=== PATIENT | female | born 1955 | race Caucasian/White ===

== ENCOUNTER 2022-03-28 07:22 | Inpatient (IN) | payer OTHER ==
[~2022-03-28] VITALS: Ht 157.5 cm; Wt 76.5 kg
[2022-03-28] MEDS ORDERED: ETOMIDATE 2 MG/ML 10 ML VIAL IVP ONE (07:45)
[2022-03-28] MEDS ORDERED: SUCCINYLCHOLINE CHLORIDE 20 MG/ML 10 ML VIAL IVP ONE (07:45)
[2022-03-28] MEDS ORDERED: KETAMINE HCL 500 MG in DEXTROSE 5%-WATER 490 ML IV PRN (07:45)
[2022-03-28] MEDS ORDERED: 0.9% SODIUM CHLORIDE 10 ML SYRINGE IVP PRN (07:45)
[2022-03-28 08:14] LABS: BASOPHILS % (AUTO) 0.2 % (0.0-2.0); EOSINOPHILS % (AUTO) 0 % (1.0-6.0); HEMOGLOBIN 15.6 g/dL (12.0-16.0); LYMPHOCYTES # (AUTO) 0.3 K/uL (1.0-4.8); LYMPHOCYTES % (AUTO) 1.9 % (22.0-44.0); MEAN CORPUSCULAR HEMOGLOBIN 32.3 pg (26.0-34.0); MEAN CORPUSCULAR HGB CONC 34.5 G/dL (31.0-37.0); MEAN CORPUSCULAR VOLUME 93 fL (80-100); MONOCYTES # (AUTO) 1.3 K/uL (0.1-1.0); MONOCYTES % (AUTO) 9.4 % (2.0-9.0); PLATELET COUNT (AUTO) 283 K/uL (150-450); RED BLOOD CELL COUNT(AUTO) 4.82 MIL/uL (4.00-5.20); RED CELL DISTRIBUTION WIDTH 13.2 % (11.5-14.5)
[2022-03-28 08:15] LABS: NEUTROPHILS % (AUTO) 88.5 % (40.0-70.0)
[2022-03-28 08:18] LABS: ANION GAP 9 mmol/L (8-16); CALCIUM, TOTAL 9.1 mg/dL (8.8-10.5); CARBON DIOXIDE 30 mmol/L (22-29); CHLORIDE 102 mmol/L (98-107); CREATININE 0.98 mg/dL (0.60-1.30); GLOMERULAR FILTR. RATE CALC 56 mL/min (>60); GLUCOSE,RANDOM 162 mg/dL (70-110); POTASSIUM 3.7 mmol/L (3.5-5.1); SODIUM SERUM 141 mmol/L (136-145); UREA NITROGEN, BLOOD 16 mg/dL (7-18)
[2022-03-28 08:19] LABS: PROTHROMBIN TIME 11.1 SEC (9.4-11.6)
[2022-03-28 08:23] LABS: ALANINE AMINOTRANSFERASE 65 U/L (12-78); ALBUMIN 4.3 g/dL (3.4-5.0); ALKALINE PHOSPHATASE 105 U/L (46-116); ASPARTATE AMINOTRANSFERASE 45 U/L (15-37); TOTAL PROTEIN, SERUM 8.2 g/dL (6.4-8.2)
[2022-03-28 08:30] LABS: LACTIC ACID 6.2 mmol/L (0.4-2.0)
[2022-03-28 08:35] LABS: B-TYPE NATRIURETIC PEPTIDE 54 pg/mL (0-100)
[2022-03-28] MEDS ORDERED: CefTRIAXone 1 GM/DEXTROSE 50 ML IV ONE (09:00)
[2022-03-28] MEDS ORDERED: AZITHROMYCIN 500 MG/NS 250 ML IV ONE (09:00)
[2022-03-28 09:14] LABS: APPEARANCE,URINE CLEAR (CLEAR); BILIRUBIN,URINE NEGATIVE (NEGATIVE); GLUCOSE, URINE (UA) NEGATIVE (NEGATIVE); KETONES,URINE NEGATIVE (NEGATIVE); LEUKOCYTE ESTERASE ,URINE NEGATIVE (NEGATIVE); NITRATE,URINE NEGATIVE (NEGATIVE); OCCULT BLOOD,URINE NEGATIVE (NEGATIVE); PH,URINE 6.5 (5.0-8.0); PROTEIN,URINE TRACE mg/dL (NEGATIVE); SPECIFIC GRAVITIY, URINE 1.018 (1.003-1.030); UROBILINOGEN,URINE <=1.0 mg/dL (<=1.0)
[2022-03-28] MEDS ORDERED: SODIUM CHLORIDE 0.9% 2,300 ML IV ONE (09:15)
[2022-03-28] MEDS ORDERED: ACETAMINOPHEN 1000 MG/ISO-OSM 100 ML IV ONE (09:15)
[2022-03-28 09:27] LABS: BACTERIA,URINE None Seen /HPF (None Seen); RBC,URINE None Seen /HPF (0-2); SQUAMOUS EPITHELIAL CELL,UR Few /LPF (None Seen); WBC,URINE None Seen /HPF (0-5)
[2022-03-28 09:39] LABS: ABG BASE EXCESS -0.3 mmol/L (-2.0-3.0); ABG CARBOXYHEMOGLOBIN 0.1 % (0.0-1.5); ABG HCO3 24.5 mmol/L (22.0-26.0); ABG METHEMOGLOBIN 0.4 % (0.0-1.5); ABG OXYGEN CONTENT 22.1 mL/dL (15.0-23.0); ABG OXYGEN SATURATION 99.1 % (95.0-98.0); ABG OXYHEMOGLOBIN 98.6 % (94.0-100.0); ABG PCO2 42 mmHg (35-45); ABG PH 7.391 (7.35-7.450); ABG TOTAL HEMOGLOBIN 15.7 G/dL (12.0-18.0); PO2, ARTERIAL BG 181.9 mmHg (79.0-87.0); SOURCE, BLOOD GAS ARTERIAL
[2022-03-28 09:40] LABS: O2 DEVICE,BLOOD GAS VENTILATOR (ROOM AIR); PEEP,BG 5 cm H2O; SITE, BLOOD GAS RT RADIAL; SPONTANEOUS VT, BG 602 ml; VT, ABG 400 ml
[2022-03-28] MEDS ORDERED: PROPOFOL 1000 MG/ISO-OSM 100 ML ONE (10:19)
[2022-03-28] MEDS ORDERED: PROPOFOL 1000 MG/ISO-OSM 100 ML IV PRN (10:45)
[2022-03-28 11:46] LABS: COVID AG,FIA SOURCE NASAL SWAB
[2022-03-28] MEDS ORDERED: SODIUM CHLORIDE 0.9% 1,000 ML IV ONE ×2 (12:00→16:15)
[2022-03-28 16:00] VITALS: BP 93/52
[2022-03-28] MEDS ORDERED: ONDANSETRON HCL 4 MG/2 ML VIAL IVP PRN (16:15)
[2022-03-28] MEDS ORDERED: ZOLPIDEM TARTRATE 5 MG TABLET PO PRN (16:15)
[2022-03-28] MEDS ORDERED: MORPHINE SULFATE 2 MG/ML SYRINGE IVP PRN (16:15)
[2022-03-28] MEDS ORDERED: MAGNESIUM HYDROXIDE SUSPENSION 30 ML UDCUP PO PRN (16:15)
[2022-03-28] MEDS ORDERED: HYDROCODONE/ACETAMINOPHEN 5-325 MG TABLET PO PRN (16:15)
[2022-03-28] MEDS ORDERED: BISACODYL 10 MG RECTAL RECTAL SUPPOSITORY PR PRN (16:15)
[2022-03-28] MEDS: FentaNYL CIT 1000MCG/0.9% NACL 100 ML IV PRN (17:00)
[2022-03-28] MEDS: NOREPINEPHRINE 8 MG/D5%-WATER 250 ML IV PRN (17:13)
[2022-03-28] MEDS: RINGERS SOLUTION,LACTATED 1,000 ML IV SCH (17:14)
[2022-03-28 20:00] VITALS: BP 102/42
[2022-03-28] MEDS: PIPERACILLIN/TAZO 3.375 GM/D5W 50 ML IV SCH (20:24)
[2022-03-28] MEDS ORDERED: SODIUM CHLORIDE 0.9% 250 ML IV ONE (20:27)
[2022-03-28] MEDS: DOCUSATE SODIUM 100 MG CAPSULE PO SCH (21:12)
[2022-03-28] MEDS: ACETAMINOPHEN 325 MG TABLET PO PRN (21:35)
[2022-03-29] VITALS (9 sets, daily range): BP systolic 92–128; BP diastolic 40–68
[2022-03-29] MEDS: PIPERACILLIN/TAZO 3.375 GM/D5W 50 ML IV SCH ×5 (00:29→22:18)
[2022-03-29] MEDS: HEPARIN SODIUM,PORCINE 5,000 UNITS/ML VIAL SQ SCH ×4 (00:32→23:53)
[2022-03-29] MEDS: RINGERS SOLUTION,LACTATED 1,000 ML IV SCH ×3 (03:39→23:53)
[2022-03-29] MEDS: ACETAMINOPHEN 325 MG TABLET PO PRN ×2 (04:27→17:49)
[2022-03-29] MEDS: LEVOTHYROXINE SODIUM 75 MCG TABLET PO SCH (06:02)
[2022-03-29 06:15] LABS: BASOPHILS % (AUTO) 0.3 % (0.0-2.0); EOSINOPHILS % (AUTO) 0.1 % (1.0-6.0); HEMATOCRIT 39.2 % (36-46); HEMOGLOBIN 13.5 g/dL (12.0-16.0); LYMPHOCYTES # (AUTO) 1.8 K/uL (1.0-4.8); LYMPHOCYTES % (AUTO) 12.7 % (22.0-44.0); MEAN CORPUSCULAR HEMOGLOBIN 32.6 pg (26.0-34.0); MEAN CORPUSCULAR HGB CONC 34.6 G/dL (31.0-37.0); MEAN CORPUSCULAR VOLUME 94 fL (80-100); MONOCYTES # (AUTO) 0.9 K/uL (0.1-1.0); MONOCYTES % (AUTO) 6.2 % (2.0-9.0); NEUTROPHILS # (AUTO) 11.3 K/uL (1.8-7.7); NEUTROPHILS % (AUTO) 80.7 % (40.0-70.0); PLATELET COUNT (AUTO) 180 K/uL (150-450); RED BLOOD CELL COUNT(AUTO) 4.15 MIL/uL (4.00-5.20); RED CELL DISTRIBUTION WIDTH 13.3 % (11.5-14.5)
[2022-03-29 06:21] LABS: ANION GAP 7 mmol/L (8-16); CARBON DIOXIDE 27 mmol/L (22-29); CHLORIDE 106 mmol/L (98-107); CREATININE 0.57 mg/dL (0.60-1.30); GLUCOSE,RANDOM 135 mg/dL (70-110); POTASSIUM 3.4 mmol/L (3.5-5.1); SODIUM SERUM 140 mmol/L (136-145); UREA NITROGEN, BLOOD 9 mg/dL (7-18)
[2022-03-29 06:25] LABS: GLOMERULAR FILTR. RATE CALC > 60 mL/min (>60)
[2022-03-29] MEDS: NOREPINEPHRINE 8 MG/D5%-WATER 250 ML IV PRN (06:59)
[2022-03-29] MEDS: FentaNYL CIT 1000MCG/0.9% NACL 100 ML IV PRN ×2 (07:00→17:23)
[2022-03-29] MEDS: PROPOFOL 1000 MG/ISO-OSM 100 ML IV PRN ×2 (07:04→17:24)
[2022-03-29] MEDS: DOCUSATE SODIUM 100 MG CAPSULE PO SCH ×2 (08:26→21:02)
[2022-03-29] MEDS: PANTOPRAZOLE SODIUM 40 MG DR TABLET PO SCH (08:26)
[2022-03-30] VITALS: BP 120/56
[2022-03-30] MEDS: PROPOFOL 1000 MG/ISO-OSM 100 ML IV PRN ×3 (01:29→16:55)
[2022-03-30] MEDS: ACETAMINOPHEN 325 MG TABLET PO PRN ×4 (02:08→23:52)
[2022-03-30 04:00] VITALS: BP 121/49
[2022-03-30] MEDS: PIPERACILLIN/TAZO 3.375 GM/D5W 50 ML IV SCH ×4 (05:25→23:23)
[2022-03-30] MEDS: LEVOTHYROXINE SODIUM 75 MCG TABLET PO SCH (06:30)
[2022-03-30 07:07] LABS: BASOPHILS % (AUTO) 0.8 % (0.0-2.0); EOSINOPHILS % (AUTO) 0.9 % (1.0-6.0); HEMATOCRIT 36.3 % (36-46); HEMOGLOBIN 12.7 g/dL (12.0-16.0); LYMPHOCYTES # (AUTO) 1.2 K/uL (1.0-4.8); LYMPHOCYTES % (AUTO) 21.9 % (22.0-44.0); MEAN CORPUSCULAR HEMOGLOBIN 32.6 pg (26.0-34.0); MEAN CORPUSCULAR HGB CONC 34.9 G/dL (31.0-37.0); MEAN CORPUSCULAR VOLUME 93 fL (80-100); MONOCYTES # (AUTO) 0.2 K/uL (0.1-1.0); MONOCYTES % (AUTO) 4.4 % (2.0-9.0); NEUTROPHILS # (AUTO) 4.1 K/uL (1.8-7.7); PLATELET COUNT (AUTO) 165 K/uL (150-450); RED BLOOD CELL COUNT(AUTO) 3.89 MIL/uL (4.00-5.20); RED CELL DISTRIBUTION WIDTH 13.4 % (11.5-14.5)
[2022-03-30 07:20] LABS: ANION GAP 6 mmol/L (8-16); CALCIUM, TOTAL 8.5 mg/dL (8.8-10.5); CARBON DIOXIDE 29 mmol/L (22-29); CHLORIDE 107 mmol/L (98-107); CREATININE 0.56 mg/dL (0.60-1.30); GLUCOSE,RANDOM 85 mg/dL (70-110); POTASSIUM 3.3 mmol/L (3.5-5.1); SODIUM SERUM 142 mmol/L (136-145); UREA NITROGEN, BLOOD 11 mg/dL (7-18)
[2022-03-30 07:22] LABS: GLOMERULAR FILTR. RATE CALC > 60 mL/min (>60)
[2022-03-30 08:00] VITALS: BP 144/67
[2022-03-30] MEDS: HEPARIN SODIUM,PORCINE 5,000 UNITS/ML VIAL SQ SCH ×3 (09:25→23:57)
[2022-03-30] MEDS: RINGERS SOLUTION,LACTATED 1,000 ML IV SCH ×2 (09:25→18:00)
[2022-03-30] MEDS: DOCUSATE SODIUM 100 MG CAPSULE PO SCH (09:25)
[2022-03-30] MEDS: PANTOPRAZOLE SODIUM 40 MG DR TABLET PO SCH (09:26)
[2022-03-30 11:28] LABS: ABG BASE EXCESS 4.3 mmol/L (-2.0-3.0); ABG CARBOXYHEMOGLOBIN 0.3 % (0.0-1.5); ABG HCO3 28.1 mmol/L (22.0-26.0); ABG METHEMOGLOBIN 0.3 % (0.0-1.5); ABG OXYGEN CONTENT 16.7 mL/dL (15.0-23.0); ABG OXYGEN SATURATION 96.3 % (95.0-98.0); ABG OXYHEMOGLOBIN 95.7 % (94.0-100.0); ABG PCO2 41 mmHg (35-45); ABG PH 7.458 (7.35-7.450); ABG TOTAL HEMOGLOBIN 12.4 G/dL (12.0-18.0); PO2, ARTERIAL BG 83.3 mmHg (79.0-87.0); SOURCE, BLOOD GAS ARTERIAL; TEMPERATURE, FAHRENHEIT, BG 100.3 FAHREN (96.0-98.6)
[2022-03-30 11:29] LABS: O2 DEVICE,BLOOD GAS VENTILATOR (ROOM AIR); PEEP,BG 5 cm H2O; PRESSURE SUPPORT, BG 5 cm H2O; SITE, BLOOD GAS LFT RADIAL; SPONTANEOUS VT, BG 411 ml; VENT MODE, BG Press. Support Vent. (ROOM AIR)
[2022-03-30] MEDS ORDERED: HydrALAZINE HCL 20 MG/ML VIAL IVP ONE (11:45)
[2022-03-30 12:00] VITALS: BP 125/60
[2022-03-30] MEDS: FentaNYL CIT 1000MCG/0.9% NACL 100 ML IV PRN (12:28)
[2022-03-30] MEDS ORDERED: POTASSIUM CHLORIDE 20 MEQ ER TABLET PO PRN (12:30)
[2022-03-30] MEDS: POTASSIUM CHL 10 MEQ/WATER 50 ML IV PRN ×5 (14:22→22:25)
[2022-03-30 16:00] VITALS: BP 107/58
[2022-03-30] MEDS ORDERED: DEXMEDETOMIDINE HCL 400 MCG in SODIUM CHLORIDE 0.9% 96 ML IV PRN (19:15)
[2022-03-30 20:00] VITALS: BP 94/52
[2022-03-30] MEDS ORDERED: SODIUM CHLORIDE 0.9% 250 ML IV ONE (20:34)
[2022-03-30] MEDS ORDERED: FUROSEMIDE 20 MG/2 ML VIAL IVP ONE (21:30)
[2022-03-30] MEDS: DOCUSATE SODIUM 100 MG/10 ML LIQUID UDCUP NG SCH (21:35)
[2022-03-31] VITALS (12 sets, daily range): BP systolic 114–186; BP diastolic 58–105
[2022-03-31] MEDS: FentaNYL CIT 1000MCG/0.9% NACL 100 ML IV PRN ×2 (00:07→11:38)
[2022-03-31] MEDS: POTASSIUM CHL 10 MEQ/WATER 50 ML IV PRN ×5 (00:08→11:30)
[2022-03-31] MEDS: PROPOFOL 1000 MG/ISO-OSM 100 ML IV PRN (04:03)
[2022-03-31] MEDS: PIPERACILLIN/TAZO 3.375 GM/D5W 50 ML IV SCH ×4 (05:13→22:26)
[2022-03-31] MEDS: LEVOTHYROXINE SODIUM 75 MCG TABLET PO SCH (05:35)
[2022-03-31] MEDS ORDERED: SODIUM CHLORIDE 0.9% 250 ML IV ONE ×3 (05:37→17:02)
[2022-03-31 05:52] LABS: ANION GAP 2 mmol/L (8-16); CALCIUM, TOTAL 7.8 mg/dL (8.8-10.5); CARBON DIOXIDE 33 mmol/L (22-29); CHLORIDE 104 mmol/L (98-107); CREATININE 0.62 mg/dL (0.60-1.30); GLUCOSE,RANDOM 135 mg/dL (70-110); SODIUM SERUM 139 mmol/L (136-145); UREA NITROGEN, BLOOD 9 mg/dL (7-18)
[2022-03-31 05:54] LABS: BASOPHILS % (AUTO) 0.4 % (0.0-2.0); EOSINOPHILS % (AUTO) 0.7 % (1.0-6.0); HEMOGLOBIN 11.3 g/dL (12.0-16.0); LYMPHOCYTES # (AUTO) 0.8 K/uL (1.0-4.8); LYMPHOCYTES % (AUTO) 19.7 % (22.0-44.0); MEAN CORPUSCULAR HEMOGLOBIN 32.8 pg (26.0-34.0); MEAN CORPUSCULAR HGB CONC 35.4 G/dL (31.0-37.0); MEAN CORPUSCULAR VOLUME 93 fL (80-100); MONOCYTES # (AUTO) 0.3 K/uL (0.1-1.0); NEUTROPHILS # (AUTO) 3.2 K/uL (1.8-7.7); NEUTROPHILS % (AUTO) 73.2 % (40.0-70.0); PLATELET COUNT (AUTO) 145 K/uL (150-450); RED BLOOD CELL COUNT(AUTO) 3.45 MIL/uL (4.00-5.20); RED CELL DISTRIBUTION WIDTH 13.5 % (11.5-14.5)
[2022-03-31 05:55] LABS: GLOMERULAR FILTR. RATE CALC > 60 mL/min (>60)
[2022-03-31 05:57] LABS: POTASSIUM 2.9 mmol/L (3.5-5.1)
[2022-03-31] MEDS: ACETAMINOPHEN 325 MG TABLET PO PRN ×4 (06:40→20:39)
[2022-03-31] MEDS: PANTOPRAZOLE SODIUM 40 MG DR TABLET PO SCH (09:06)
[2022-03-31] MEDS: DOCUSATE SODIUM 100 MG/10 ML LIQUID UDCUP NG SCH ×2 (09:07→20:38)
[2022-03-31] MEDS: HEPARIN SODIUM,PORCINE 5,000 UNITS/ML VIAL SQ SCH ×2 (09:07→16:16)
[2022-03-31] MEDS ORDERED: *CLINICAL-LEVOFLOXACIN IVPB DOSING CLINICAL ONE (10:00)
[2022-03-31] MEDS: LEVOFLOXACIN 750 MG/D5% WATER 150 ML IV SCH (15:29)
[2022-03-31 17:26] LABS: ABG BASE EXCESS 5.7 mmol/L (-2.0-3.0); ABG CARBOXYHEMOGLOBIN 0.1 % (0.0-1.5); ABG HCO3 29.4 mmol/L (22.0-26.0); ABG METHEMOGLOBIN 0.3 % (0.0-1.5); ABG OXYGEN CONTENT 16.9 mL/dL (15.0-23.0); ABG OXYGEN SATURATION 96.3 % (95.0-98.0); ABG OXYHEMOGLOBIN 95.9 % (94.0-100.0); ABG PCO2 41 mmHg (35-45); ABG PH 7.473 (7.35-7.450); ABG TOTAL HEMOGLOBIN 12.5 G/dL (12.0-18.0); PO2, ARTERIAL BG 84.8 mmHg (79.0-87.0); SOURCE, BLOOD GAS ARTERIAL
[2022-03-31 17:28] LABS: ABG A-A DIFF O2 151.9 mmHg (10-20.0); O2 DEVICE,BLOOD GAS VENTILATOR (ROOM AIR); SITE, BLOOD GAS LFT RADIAL; VENT MODE, BG CPAP (ROOM AIR)
[2022-03-31 17:29] LABS: CPAP, BG 5 cm H2O; PRESSURE SUPPORT, BG 8 cm H2O; SPONTANEOUS VT, BG 386 ml
[2022-03-31] MEDS ORDERED: HydrALAZINE HCL 20 MG/ML VIAL IVP ONE (17:30)
[2022-03-31 17:39] LABS: APPEARANCE,URINE CLEAR (CLEAR); BILIRUBIN,URINE NEGATIVE (NEGATIVE); GLUCOSE, URINE (UA) NEGATIVE (NEGATIVE); KETONES,URINE TRACE mg/dL (NEGATIVE); LEUKOCYTE ESTERASE ,URINE NEGATIVE (NEGATIVE); NITRATE,URINE NEGATIVE (NEGATIVE); OCCULT BLOOD,URINE NEGATIVE (NEGATIVE); PROTEIN,URINE 30-70 mg/dL (NEGATIVE); SPECIFIC GRAVITIY, URINE 1.034 (1.003-1.030)
[2022-03-31 18:11] LABS: RBC,URINE 0-2 /HPF (0-2); WBC,URINE 0-2 /HPF (0-5)
[2022-03-31 18:12] LABS: BACTERIA,URINE None Seen /HPF (None Seen)
[2022-03-31] MEDS: HydrALAZINE HCL 20 MG/ML VIAL IVP PRN (22:25)
[2022-04-01] VITALS (8 sets, daily range): BP systolic 160–184; BP diastolic 73–92
[2022-04-01] MEDS: HEPARIN SODIUM,PORCINE 5,000 UNITS/ML VIAL SQ SCH ×3 (00:24→15:56)
[2022-04-01] MEDS: HydrALAZINE HCL 20 MG/ML VIAL IVP PRN ×4 (02:40→21:51)
[2022-04-01] MEDS: ACETAMINOPHEN 325 MG TABLET PO PRN ×4 (02:41→22:11)
[2022-04-01] MEDS: PIPERACILLIN/TAZO 3.375 GM/D5W 50 ML IV SCH ×4 (05:16→21:51)
[2022-04-01 09:01] LABS: BASOPHILS % (AUTO) 0.1 % (0.0-2.0); EOSINOPHILS % (AUTO) 0 % (1.0-6.0); HEMATOCRIT 39.7 % (36-46); HEMOGLOBIN 14.2 g/dL (12.0-16.0); LYMPHOCYTES # (AUTO) 0.6 K/uL (1.0-4.8); LYMPHOCYTES % (AUTO) 10.7 % (22.0-44.0); MEAN CORPUSCULAR HEMOGLOBIN 32.9 pg (26.0-34.0); MEAN CORPUSCULAR HGB CONC 35.7 G/dL (31.0-37.0); MEAN CORPUSCULAR VOLUME 92 fL (80-100); MONOCYTES # (AUTO) 0.4 K/uL (0.1-1.0); MONOCYTES % (AUTO) 7.2 % (2.0-9.0); NEUTROPHILS # (AUTO) 4.5 K/uL (1.8-7.7); PLATELET COUNT (AUTO) 201 K/uL (150-450); RED BLOOD CELL COUNT(AUTO) 4.31 MIL/uL (4.00-5.20); RED CELL DISTRIBUTION WIDTH 13.2 % (11.5-14.5)
[2022-04-01 09:10] LABS: ANION GAP 5 mmol/L (8-16); CALCIUM, TOTAL 8.3 mg/dL (8.8-10.5); CARBON DIOXIDE 33 mmol/L (22-29); CHLORIDE 100 mmol/L (98-107); CREATININE 0.52 mg/dL (0.60-1.30); GLUCOSE,RANDOM 151 mg/dL (70-110); SODIUM SERUM 138 mmol/L (136-145); UREA NITROGEN, BLOOD 8 mg/dL (7-18)
[2022-04-01 09:19] LABS: GLOMERULAR FILTR. RATE CALC > 60 mL/min (>60); POTASSIUM 2.8 mmol/L (3.5-5.1)
[2022-04-01] MEDS: POTASSIUM CHL 10 MEQ/WATER 50 ML IV PRN ×5 (09:30→14:26)
[2022-04-01] MEDS: PANTOPRAZOLE SODIUM 40 MG DR TABLET PO SCH (09:31)
[2022-04-01] MEDS: LEVOTHYROXINE SODIUM 75 MCG TABLET PO SCH (09:31)
[2022-04-01] MEDS: DOCUSATE SODIUM 100 MG/10 ML LIQUID UDCUP NG SCH ×2 (09:31→21:51)
[2022-04-01] MEDS: AmLODIPine BESYLATE 10 MG TABLET PO SCH (11:34)
[2022-04-01] MEDS: LEVOFLOXACIN 750 MG/D5% WATER 150 ML IV SCH (12:41)
[2022-04-01] MEDS ORDERED: LORazepam 2 MG/ML VIAL ONE (15:32)
[2022-04-01] MEDS ORDERED: LORazepam 2 MG/ML VIAL IVP ONE (15:45)
[2022-04-01] MEDS ORDERED: LORazepam 2 MG/ML VIAL IM ONE (15:45)
[2022-04-01] MEDS: LevETIRAcetam 1,000 MG in DEXTROSE 5%-WATER 100 ML IV SCH (16:05)
[2022-04-01 19:40] LABS: ABG CARBOXYHEMOGLOBIN 0.7 % (0.0-1.5); ABG HCO3 30.7 mmol/L (22.0-26.0); ABG METHEMOGLOBIN 0.3 % (0.0-1.5); ABG OXYGEN CONTENT 19.2 mL/dL (15.0-23.0); ABG OXYGEN SATURATION 95.6 % (95.0-98.0); ABG OXYHEMOGLOBIN 94.6 % (94.0-100.0); ABG PCO2 36 mmHg (35-45); ABG PH 7.534 (7.35-7.450); ABG TOTAL HEMOGLOBIN 14.4 G/dL (12.0-18.0); PO2, ARTERIAL BG 67.4 mmHg (79.0-87.0); SOURCE, BLOOD GAS ARTERIAL; TEMPERATURE, FAHRENHEIT, BG 98.1 FAHREN (96.0-98.6)
[2022-04-01 19:44] LABS: ABG A-A DIFF O2 147.8 mmHg (10-20.0); SITE, BLOOD GAS RT RADIAL
[2022-04-01 19:45] LABS: O2 DEVICE,BLOOD GAS NASAL CANNULA (ROOM AIR)
[2022-04-01] MEDS ORDERED: IOHEXOL 350 MG/ML 100 ML VIAL ONE (20:53)
[2022-04-01] MEDS ORDERED: SODIUM CHLORIDE 0.9% 100 ML ONE (20:53)
[2022-04-02] VITALS: BP 150/64
[2022-04-02] MEDS: HEPARIN SODIUM,PORCINE 5,000 UNITS/ML VIAL SQ SCH ×4 (01:33→23:17)
[2022-04-02 04:00] VITALS: BP 180/72
[2022-04-02] MEDS: HydrALAZINE HCL 20 MG/ML VIAL IVP PRN ×2 (04:15→12:20)
[2022-04-02] MEDS: LevETIRAcetam 1,000 MG in DEXTROSE 5%-WATER 100 ML IV SCH ×2 (04:19→16:12)
[2022-04-02 05:33] LABS: BASOPHILS % (AUTO) 0.3 % (0.0-2.0); EOSINOPHILS % (AUTO) 0.1 % (1.0-6.0); HEMATOCRIT 38.4 % (36-46); HEMOGLOBIN 13.6 g/dL (12.0-16.0); LYMPHOCYTES # (AUTO) 1.1 K/uL (1.0-4.8); LYMPHOCYTES % (AUTO) 22.3 % (22.0-44.0); MEAN CORPUSCULAR HEMOGLOBIN 32.5 pg (26.0-34.0); MEAN CORPUSCULAR HGB CONC 35.3 G/dL (31.0-37.0); MEAN CORPUSCULAR VOLUME 92 fL (80-100); MONOCYTES # (AUTO) 0.5 K/uL (0.1-1.0); NEUTROPHILS # (AUTO) 3.3 K/uL (1.8-7.7); NEUTROPHILS % (AUTO) 67.3 % (40.0-70.0); PLATELET COUNT (AUTO) 224 K/uL (150-450); RED BLOOD CELL COUNT(AUTO) 4.17 MIL/uL (4.00-5.20); RED CELL DISTRIBUTION WIDTH 13.7 % (11.5-14.5)
[2022-04-02] MEDS: PIPERACILLIN/TAZO 3.375 GM/D5W 50 ML IV SCH ×4 (06:21→23:17)
[2022-04-02] MEDS: CloNIDine HCL 0.1 MG TABLET PO PRN ×2 (06:27→14:44)
[2022-04-02] MEDS: LEVOTHYROXINE SODIUM 75 MCG TABLET PO SCH (06:27)
[2022-04-02] MEDS: ACETAMINOPHEN 325 MG TABLET PO PRN (06:28)
[2022-04-02] MEDS: POTASSIUM CHL 10 MEQ/WATER 50 ML IV PRN ×3 (06:49→11:30)
[2022-04-02 08:00] VITALS: BP 148/72
[2022-04-02 08:09] LABS: ANION GAP 8 mmol/L (8-16); CALCIUM, TOTAL 8.5 mg/dL (8.8-10.5); CARBON DIOXIDE 28 mmol/L (22-29); CHLORIDE 102 mmol/L (98-107); CREATININE 0.54 mg/dL (0.60-1.30); GLOMERULAR FILTR. RATE CALC > 60 mL/min (>60); GLUCOSE,RANDOM 158 mg/dL (70-110); SODIUM SERUM 138 mmol/L (136-145); UREA NITROGEN, BLOOD 14 mg/dL (7-18)
[2022-04-02 08:10] LABS: POTASSIUM 2.8 mmol/L (3.5-5.1)
[2022-04-02] MEDS: AmLODIPine BESYLATE 10 MG TABLET PO SCH (08:35)
[2022-04-02] MEDS: PANTOPRAZOLE SODIUM 40 MG DR TABLET PO SCH (08:35)
[2022-04-02] MEDS: DOCUSATE SODIUM 100 MG/10 ML LIQUID UDCUP NG SCH ×2 (08:35→21:36)
[2022-04-02] MEDS ORDERED: DiphenhydrAMINE HCL 50 MG/ML VIAL IVP ONE (11:00)
[2022-04-02] MEDS ORDERED: PrednisoLONE SOD PHOSPHATE 15 MG/5 ML SOLUTION UDCUP PO ONE (11:00)
[2022-04-02] MEDS ORDERED: FAMOTIDINE 10 MG/ML 2 ML VIAL IVP ONE (11:00)
[2022-04-02] MEDS ORDERED: PredniSONE 20 MG TABLET PO ONE (11:30)
[2022-04-02 12:00] VITALS: BP 151/73
[2022-04-02] MEDS: LEVOFLOXACIN 750 MG/D5% WATER 150 ML IV SCH (12:07)
[2022-04-02 16:00] VITALS: BP 145/81
[2022-04-02 20:00] VITALS: BP 128/70
[2022-04-03] VITALS: BP 135/87
[2022-04-03 04:00] VITALS: BP 141/88
[2022-04-03] MEDS: LevETIRAcetam 1,000 MG in DEXTROSE 5%-WATER 100 ML IV SCH ×2 (04:17→16:27)
[2022-04-03 05:58] LABS: BASOPHILS % (AUTO) 0.2 % (0.0-2.0); EOSINOPHILS % (AUTO) 0.1 % (1.0-6.0); HEMATOCRIT 38.1 % (36-46); HEMOGLOBIN 13.4 g/dL (12.0-16.0); LYMPHOCYTES # (AUTO) 1.1 K/uL (1.0-4.8); LYMPHOCYTES % (AUTO) 20.5 % (22.0-44.0); MEAN CORPUSCULAR HEMOGLOBIN 32.9 pg (26.0-34.0); MEAN CORPUSCULAR HGB CONC 35.2 G/dL (31.0-37.0); MEAN CORPUSCULAR VOLUME 94 fL (80-100); MONOCYTES # (AUTO) 0.6 K/uL (0.1-1.0); MONOCYTES % (AUTO) 10.2 % (2.0-9.0); NEUTROPHILS # (AUTO) 3.7 K/uL (1.8-7.7); PLATELET COUNT (AUTO) 221 K/uL (150-450); RED BLOOD CELL COUNT(AUTO) 4.07 MIL/uL (4.00-5.20); RED CELL DISTRIBUTION WIDTH 13.7 % (11.5-14.5)
[2022-04-03] MEDS: PIPERACILLIN/TAZO 3.375 GM/D5W 50 ML IV SCH ×3 (06:02→16:25)
[2022-04-03 06:04] LABS: ANION GAP 3 mmol/L (8-16); CALCIUM, TOTAL 8.1 mg/dL (8.8-10.5); CARBON DIOXIDE 32 mmol/L (22-29); CHLORIDE 104 mmol/L (98-107); CREATININE 0.48 mg/dL (0.60-1.30); GLUCOSE,RANDOM 169 mg/dL (70-110); POTASSIUM 3.6 mmol/L (3.5-5.1); SODIUM SERUM 139 mmol/L (136-145); UREA NITROGEN, BLOOD 23 mg/dL (7-18)
[2022-04-03] MEDS: LEVOTHYROXINE SODIUM 75 MCG TABLET PO SCH (06:07)
[2022-04-03 06:11] LABS: GLOMERULAR FILTR. RATE CALC > 60 mL/min (>60)
[2022-04-03 08:00] VITALS: BP 183/82
[2022-04-03] MEDS: DOCUSATE SODIUM 100 MG/10 ML LIQUID UDCUP NG SCH (08:42)
[2022-04-03] MEDS: HEPARIN SODIUM,PORCINE 5,000 UNITS/ML VIAL SQ SCH ×2 (08:42→16:26)
[2022-04-03] MEDS: PANTOPRAZOLE SODIUM 40 MG DR TABLET PO SCH (08:43)
[2022-04-03] MEDS: AmLODIPine BESYLATE 10 MG TABLET PO SCH (08:43)
[2022-04-03] MEDS: ACETAMINOPHEN 325 MG TABLET PO PRN (10:35)
[2022-04-03 12:00] VITALS: BP 145/77
[2022-04-03] MEDS: LEVOFLOXACIN 750 MG/D5% WATER 150 ML IV SCH (12:28)
[2022-04-03] MEDS ORDERED: DiphenhydrAMINE HCL 50 MG/ML VIAL IVP ONE (15:15)
[2022-04-03] MEDS ORDERED: PredniSONE 20 MG TABLET PO ONE (15:15)
[2022-04-03] MEDS ORDERED: FAMOTIDINE 10 MG/ML 2 ML VIAL IVP ONE (15:15)
[2022-04-03 16:00] VITALS: BP 154/78
[2022-04-03] MEDS ORDERED: VANCOMYCIN HCL 1.25 GM in DEXTROSE 5%-WATER 250 ML IV ONE (17:00)
[2022-04-03] MEDS: HydrALAZINE HCL 20 MG/ML VIAL IVP PRN (18:37)
[2022-04-03 20:00] VITALS: BP 158/74
[2022-04-04] MEDS ORDERED: VANCOMYCIN 1GM/WATER(PEG/NADA) 200 ML IV SCH (08:00)
== END 2022-04-03 23:00 | disposition short-term general hospital (02) | DRG 870 ==
LOC: EMS 07:23 → EDBD 07:23 → ICU 11:43
PROVIDERS: ADMIT Internal Medicine; ATTEND Internal Medicine
PROC: 5A1955Z Respiratory Ventilation, Greater than 96 Consecutive Hours (ICD-10-PCS; principal; 2022-03-28)
PROC: 0BH17EZ Insertion of Endotracheal Airway into Trachea, Via Natural or Artificial Opening (ICD-10-PCS; 2022-03-28)
PROC: 5A12012 Performance of Cardiac Output, Single, Manual (ICD-10-PCS; 2022-03-28)
PROC: 4A00X4Z Measurement of Central Nervous Electrical Activity, External Approach (ICD-10-PCS; 2022-04-02)
DX: A41.9 Sepsis, unspecified organism (principal); J69.0 Pneumonitis due to inhalation of food and vomit; J96.01 Acute respiratory failure with hypoxia; G93.41 Metabolic encephalopathy; I46.9 Cardiac arrest, cause unspecified; F03.93 Unspecified dementia, unspecified severity, with mood disturbance; E87.20 Acidosis, unspecified; E87.4 Mixed disorder of acid-base balance; E66.9 Obesity, unspecified; E11.9 Type 2 diabetes mellitus without complications; R62.7 Adult failure to thrive; E03.9 Hypothyroidism, unspecified; Z20.822 Contact with and (suspected) exposure to COVID-19; E87.6 Hypokalemia; R13.10 Dysphagia, unspecified; F20.9 Schizophrenia, unspecified; I10 Essential (primary) hypertension; Z66 Do not resuscitate; Z79.899 Other long term (current) drug therapy; Z82.49 Family history of ischemic heart disease and other diseases of the circulatory system; Z68.30 Body mass index [BMI] 30.0-30.9, adult
CPT/HCPCS: 36600; 70450; 71045; 71260; 72193; 74019; 74160; 80048; 80053; 81001; 82140; 82805; 83605; 83735; 83880; 84132; 84145; 85025; 85610; 87040; 87070; 87077; 87081; 87205; 93005; 94002; 94003; 95816; 99291; G0378; J0131; J0360; J0456; J0696; J0712; J1200; J1644; J1940; J1956; J2060; J2543; J2704; J3370; J3480; J3490; J7030; J7050; J7060; J7120; Q9967; 36415-L1; 36415-TC